=== PATIENT | female | born 1970 | race Caucasian/White ===

== ENCOUNTER 2018-10-15 07:59 | Inpatient (IN) | payer OTHER ==
[~2018-10-15] VITALS: Ht 160 cm; Wt 88.5 kg
[2018-10-15] VITALS (23 sets, daily range): BP systolic 118–151; BP diastolic 62–104; PULSE 62–80; RESP 10–24; Ht 160 cm; Wt 88.5 kg
[2018-10-15] MEDS: SOD CHLORIDE 0.9% 1,000 ML IV SCH ×2 (06:30→19:50)
[~2018-10-15 07:59] MED LIST: ATEN-51 PO; ATOR10TA65 PO; BENA10TA4 PO; CEFAZOLIN 2 GM/50 ML (PMX) 50 ML IVPB SCH; CYCL5TAB PO; ERGO500013 PO; HYDR-3601 PO; LEVO50TA71 PO
[2018-10-15] MEDS ORDERED: PHENYLephrine (100 MCG/ML) 10ML SYG ONE (11:25)
[2018-10-15] MEDS ORDERED: PROPOFOL 20 ML ONE (11:25)
[2018-10-15] MEDS ORDERED: SEVOFLURANE 15 MIN ONE (11:25)
[2018-10-15] MEDS ORDERED: ROCURONIUM 50 MG INJ ONE (11:25)
[2018-10-15] MEDS ORDERED: CEFAZOLIN 1 GM INJ ONE (11:25)
[2018-10-15] MEDS ORDERED: MIDAZOLAM 1 MG/ML 2 ML INJ ONE (11:26)
[2018-10-15] MEDS ORDERED: FENTAnyl 50 MCG/ML VIAL ONE ×2 (11:26→12:44)
--- NOTE | 2018-10-15 12:01 | PREAC ---
Date/Time of Note Date/Time of Note DATE: 10/15/18 TIME: 11:59 Anesthesia Eval and Record Evaluation Time Pre-Procedure Interview DATE: 10/15/18 TIME: 11:59 Age 48 Sex female NPO: 8 hrs Preoperative diagnosis Thyroid Nodule Planned procedure Total Thyroidectomy Past Medical History Past Medical History: Includes Cardio: HTN, Dyslipidemia Endo: Hypothyroid GI: Obesity Surgery & Anesthesia Issues No known issue Meds Anticoagulation: No Beta Haseeb within 24 hr: No Reason Beta Haseeb not given: Pt. not on B-Haseeb Reported Medications Atenolol* (Atenolol*) 25 Mg Tablet, 25 MG PO DAILY, #30 TAB 10/15/18 Ergocalciferol (Vitamin D2) (VITAMIN D2) 50,000 Unit Capsule, 93498 UNIT PO EVERY THURSDAY, CAP 10/15/18 Atorvastatin Calcium (Atorvastatin Calcium) 10 Mg Tablet, 10 MG PO QHS, #30 TAB 10/15/18 Benazepril Hcl* (Benazepril Hcl*) 10 Mg Tablet, 10 MG PO DAILY, #30 TAB 10/15/18 Levothyroxine Sodium* (Levoxyl*) 50 Mcg Tablet, 50 MCG PO BEFORE BREAKFAST, #30 TAB 10/15/18 Cyclobenzaprine Hcl* (Cyclobenzaprine Hcl*) 5 Mg Tablet, 5 MG PO BID PRN for MUSCLE SPASMS, #60 TAB 10/15/18 Current Medications Cefazolin Sodium/ Dextrose 50 ml @ 100 mls/hr PREOP IVPB ; Start 10/15/18 at 06:30; Stop 10/15/18 at 18:00 Sodium Chloride 1,000 ml @ 75 mls/hr [id number] IV ; Start 10/15/18 at 06:30; Stop 10/15/18 at 20:00 Meds reviewed: Yes Allergies Uncoded Allergies: BLOOD PRESSURE MEDICATION (Allergy, Unknown, 10/14/18) "BLOOD PRESSURE MEDICATION PER PRE-OP ORDER SHEET"-- Allergies Reviewed: Yes Labs/Studies Labs Reviewed: Reviewed by anesthesiologist Result Diagram: 10/15/18 0940 10/15/18 0940 Laboratory Tests 10/15/18 09:40 test: Negative Studies: ECG (n/a), CXR (n/a) Pre-procedure Exam Last vitals Vital Signs Date Temp Pulse Resp B/P (MAP) Pulse Ox O2 O2 Flow FiO2 Time Delivery Rate 7/26/19 97.3 80 16 138/86 99 Room Air 10:03 (103) Airway: Adequate mouth opening, Adequate thyromental dist Mallampati: Mallampati II Teeth: Normal Lung: Normal Heart: Normal ASA Physical Status ASA physical status: 3 Emergency: None Planned Anesthetic General/MAC: ETT Planned Pain Management Parenteral pain med Pre-operative Attestations Prior to commencing anesthesia and surgery, the patient was re-evaluated, there was verification of: *The patient's identity *The results of appropriate recent lab work and preoperative vital signs *The above evaluation not changing prior to induction *Anesthetic plan, risk benefits, alternative and complications discussed with patient/family; questions answered; patient/family understands, accepts and wishes to proceed. WILLIE MYLES MD Oct 15, 2018 12:00
[2018-10-15] MEDS ORDERED: BUPIVACAINE 0.25% (MPF) 30 ML INJ ONE (12:05)
[2018-10-15] MEDS ORDERED: FENTAnyl 50 MCG/ML VIAL IV PRN ×2 (12:30)
[2018-10-15] MEDS ORDERED: EPHEDrine 25 MG/5 ML SYG IV PRN (12:30)
[2018-10-15] MEDS ORDERED: hydrALAzine 20 MG INJ IV PRN (12:30)
[2018-10-15] MEDS ORDERED: ONDANSETRON 4 MG INJ IV PRN (12:30)
[2018-10-15] MEDS ORDERED: MEPERIDINE 25 MG INJ IV PRN (12:30)
[2018-10-15] MEDS ORDERED: OXYCODONE/ACETAMINOPHEN (5/325) TAB PO PRN (12:30)
[2018-10-15] MEDS ORDERED: LABETALOL HCL 20MG INJ IV PRN (12:30)
[2018-10-15] MEDS ORDERED: DIPHENHYDRAMINE 50 MG INJ IV PRN (12:30)
[2018-10-15] MEDS ORDERED: METOCLOPRAMIDE 10 MG INJ IV PRN (12:30)
[2018-10-15] MEDS ORDERED: HYDROmorphONE 1 MG/5 ML IV SYRINGE IV PRN ×2 (12:30)
[2018-10-15] MEDS ORDERED: DEXAMETHASONE 4 MG/ML 5 ML INJ ONE (12:36)
[2018-10-15] MEDS ORDERED: METOCLOPRAMIDE 10 MG INJ ONE (12:36)
[2018-10-15] MEDS ORDERED: ONDANSETRON 4 MG INJ ONE (12:36)
[2018-10-15] MEDS ORDERED: LABETALOL HCL 20MG INJ ONE (12:46)
[2018-10-15] MEDS ORDERED: SUGAMMADEX SODIUM 200 MG/2 ML VIAL IV ONE (13:17)
--- NOTE | 2018-10-15 13:27 | OPR ---
Date/Time of Note Date/Time of Note DATE: 10/15/18 TIME: 13:21 Operative Report Procedure Date: Oct 15, 2018 Preoperative Diagnosis thyroid nodule and dysphagia Postoperative Diagnosis same Operation/Procedure Performed 1. total thyroidectomy 2. localized adjacent tissue transfer with the use of skin flaps 16 sq cm defect of the neck 3. therapeutic injection of subcutaneous local anesthesia Surgeon see signature line Reading Professor Jovi Pacheco Anesthesia Type: general Estimated Blood Loss: 10 - 50 ml's Transfusion none Specimen total thyroid surgical markings single short right superior double short right inferior single long left superior double long left inferior Grafts/Implants none Complications none Pt Condition Post Procedure: stable Indications This is a 48-year-old female with symptomatic left thyroid nodule. She states that she is having dysphasia and also does not want continued monitoring and wants the nodule Jeremi due to anxiety. She underwent genetic testing which showed a low likelihood of ligament C. Even after long discussion she was adamant about getting her whole thyroid out she felt that is causing pressure on her throat. She was told that this may not be the cause however she was adamant about getting her thyroid out. Risks alternatives benefits and personal were discussed the patient. Patient expressed understanding and consents to the operation. Procedure Description Patient is taken to the OR and prepped and draped in usual sterile fashion. Surgical time was performed. IV antibiotics given. Call incision was made with a 15 blade. Dissection with cautery was carried down through the platysmal layer. Superior and inferior platysmal flaps are created midline straps were then divided. Attention was paid to the left thyroid. There appears to be a thyroid nodule in the left side. The left inferior thyroid pole was mobilized left superior thyroid pole was mobilized. The left middle thyroid vein was ligated using handheld LigaSure. The left thyroid was medialized. Careful dissection was performed and the left thyroid was taken off of the trachea. The retro-thyroidal space was also bluntly dissected out using tonsils. The right thyroid was addressed similarly by mobilizing the right inferior pole and right superior pole. The middle thyroidal vein was ligated using a LigaSure. Thyroid was medialized. The thyroid was mobilized off the trachea. In particular there was significant inflammation and adhesions of the thyroid to the trachea. Good hemostasis established. Surgical markings of single short right superior single long left superior double short right inferior double long left inferior markings were placed. Irrigation was placed into the surgical site and a Valsalva maneuver of 40 cm of water was performed. There was no evidence of any bleeding. The incision was first closed by placing interrupted 3-0 Vicryl across the strap muscles to reapproximate the strap muscles to the anatomic position. Due to tissue defect localization to his transfer with these of skin flaps was performed. Multilayer closure of the platysmal layer with interrupted 3-0 Vicryl. The skin was then closed with interrupted 3-0 Vicryl and running 4- 0 Monocryl. Therapeutic contains local anesthesia was injected at the incision site. Steri-Strips and dry dressings were applied. Cici GRIFFIN Oct 15, 2018 13:27
--- NOTE | 2018-10-15 13:29 | PAC ---
Date/Time of Note Date/Time of Note DATE: 10/15/18 TIME: 13:29 Post-Anesthesia Notes Post-Anesthesia Note Last documented vital signs Vital Signs Date Temp Pulse Resp B/P (MAP) Pulse Ox O2 O2 Flow FiO2 Time Delivery Rate 10/15/18 97.3 80 16 138/86 99 Room Air 13:33 (103) Activity: WNL Respiratory function: WNL Cardiovascular function: WNL Mental status: Baseline Pain reasonably controlled: Yes Hydration appropriate: Yes Nausea/Vomiting absent: Yes WILLIE MYLES MD Oct 15, 2018 13:29
[2018-10-15] MEDS ORDERED: CEFAZOLIN 2 GM/50 ML (PMX) 50 ML IVPB SCH (13:30)
[2018-10-15] MEDS: FENTAnyl 50 MCG/ML VIAL IV PRN ×2 (13:49→14:20)
[2018-10-15] MEDS: HYDROmorphONE 1 MG/5 ML IV SYRINGE IV PRN ×2 (13:54→14:03)
[2018-10-15] MEDS: morphine 2 MG INJ IV PRN ×3 (15:22→22:24)
[2018-10-15] MEDS: LACTATED RINGER'S 1,000 ML IV SCH ×2 (15:23→23:19)
[2018-10-15] MEDS: CEFAZOLIN 2 GM/50 ML (PMX) 50 ML IVPB SCH (21:16)
[2018-10-16] VITALS: BP 120/58; PULSE 75; RESP 18
[2018-10-16] MEDS: morphine 2 MG INJ IV PRN ×4 (00:24→21:24)
[2018-10-16] MEDS: LACTATED RINGER'S 1,000 ML IV SCH ×3 (00:26→21:26)
[2018-10-16] MEDS: HYDROCODONE/APAP (5/325) TAB PO PRN ×4 (01:43→22:28)
[2018-10-16] MEDS: CEFAZOLIN 2 GM/50 ML (PMX) 50 ML IVPB SCH ×2 (04:26→11:26)
[2018-10-16 07:30] VITALS: BP 138/75; PULSE 76; RESP 18
--- NOTE | 2018-10-16 12:15 | HP ---
Date/Time of Note Date/Time of Note DATE: 10/16/18 TIME: 12:14 Assessment/Plan VTE Prophylaxis Risk score (from [facility])>0 risk: 8 SCD applied (from [facility]): Yes Pharmacological prophylaxis: LMWH Lines/Catheters IV Catheter Type (from [facility]): Peripheral IV Urinary Cath still in place: No Assessment/Plan Hospital Course 1) thyroid nodule - s/p total thyroidectomy - postoperative care 2) hypertension - monitor - continue meds Result Diagram: 10/16/18 0434 10/16/18 0434 Results 24hrs Laboratory Tests Test 10/15/18 13:41 10/16/18 04:34 White Blood Count 8.2 # 12.1 #H Red Blood Count 4.89 4.50 Hemoglobin 15.3 13.9 Hematocrit 47.9 H 43.3 Mean Corpuscular Volume 98.0 96.2 Mean Corpuscular Hemoglobin 31.3 30.9 Mean Corpuscular Hemoglobin Concent 31.9 L 32.1 Red Cell Distribution Width 13.9 13.9 Platelet Count 224 265 Mean Platelet Volume 9.8 9.9 Immature Granulocytes % 0.600 H 0.500 H Neutrophils % 50.1 85.7 H Lymphocytes % 39.2 10.0 L Monocytes % 7.0 3.6 Eosinophils % 2.2 0.0 Basophils % 0.9 0.2 Nucleated Red Blood Cells % 0.0 0.0 Immature Granulocytes # 0.050 H 0.060 H Neutrophils # 4.1 10.4 H Lymphocytes # 3.2 H 1.2 Monocytes # 0.6 0.4 Eosinophils # 0.2 0.0 Basophils # 0.1 0.0 Nucleated Red Blood Cells # 0.0 0.0 Sodium Level 142 141 Potassium Level 3.9 4.1 Chloride Level 109 107 Carbon Dioxide Level 23 25 Anion Gap 10 9 Blood Urea Nitrogen 13 12 Creatinine 0.66 0.64 Est Glomerular Filtrat Rate mL/min > 60 > 60 Glucose Level 102 156 Calcium Level 8.6 8.2 L Total Bilirubin 0.4 0.2 Direct Bilirubin 0.00 0.00 Indirect Bilirubin 0.4 0.2 Aspartate Amino Transf (AST/SGOT) 24 25 Alanine Aminotransferase (ALT/SGPT) 25 19 Alkaline Phosphatase 71 53 Total Protein 7.8 7.3 Albumin 3.9 3.7 Globulin 3.90 H 3.60 H Albumin/Globulin Ratio 1.00 1.02 HPI/ROS Admit Date/Time Admit Date/Time Oct 15, 2018 at 07:59 Hx of Present Illness Patient with hypertension and history of thyroid nodule is admitted for schedu led total thyroidectomy. Patient tolerated the procedure and is receiving postoperative care. PMH/Family/Social Past Medical History Medical History: hypertension Medications Current Medications Morphine Sulfate (morphine) 2 mg Q2H PRN IV PAIN LEVEL 6-10 Last administered on 10/16/18at 04:26; Admin Dose 2 MG; Start 10/15/18 at 13:30 Acetaminophen/ Hydrocodone Bitart ([place] (5/325)) 1 tab Q6H PRN PO PAIN LEVEL 6-10 Last administered on 10/16/18at 08:41; Admin Dose 1 TAB; Start 10/15/18 at 13:30 Lactated Ringer's 1,000 ml @ 100 mls/hr Q10H IV Last administered on 10/16/18at 11:34; Admin Dose 100 MLS/HR; Start 10/15/18 at 13:19 Cefazolin Sodium/ Dextrose 50 ml @ 100 mls/hr Q8H IVPB Last administered on 10/16/18at 11:26; Admin Dose 100 MLS/HR; Start 10/15/18 at 20:00; Stop 10/16/18 at 12:29 Uncoded Allergies: BLOOD PRESSURE MEDICATION (Allergy, Unknown, 10/14/18) "BLOOD PRESSURE MEDICATION PER PRE-OP ORDER SHEET"-- Social History Smoking Status: Current every day smoker Exam/Review of Systems Vital Signs Vitals Vital Signs Date Temp Pulse Resp B/P (MAP) Pulse Ox O2 O2 Flow FiO2 Time Delivery Rate 10/16/18 97.7 76 18 138/75 95 Room Air 07:30 (96) 10/15/18 2.0 16:45 Intake and Output 10/15/18 10/15/18 10/16/18 1515:00 23:00 07:00 IntakeIntake Total 1000 ml 280 ml 450 ml OutputOutput Total 10 ml BalanceBalance 990 ml 280 ml 450 ml Exam Constitutional: well developed Head: normocephalic, atraumatic Neck: supple Respiratory: clear to auscultation Cardiovascular: regular rate and rhythm Gastrointestinal: soft, non-tender Extremities: normal pulses ALON KOHURY Oct 16, 2018 12:15
[2018-10-16 14:00] VITALS: BP 140/86; PULSE 76; RESP 18
[2018-10-16 15:32] VITALS: BP 122/64; PULSE 73; RESP 15
[2018-10-16] MEDS: GUAIFENESIN/DM 5ML CUP PO PRN ×2 (15:52→21:18)
[2018-10-16] MEDS: ATENOLOL 25 MG TAB PO SCH (15:53)
--- NOTE | 2018-10-16 15:53 | PN ---
DATE: 10/16/2018 Postop day #1 status post total thyroidectomy. SUBJECTIVE: Apparently, patient has had some decreased oxygen saturation last night, they had to giv e her some oxygen. OBJECTIVE: VITAL SIGNS: Today temperature 98.2, heart rate 75, respirations 18, blood pressure is 138/75, pulse oximetry is 94%, room air. GENERAL: Patient is alert, awake, oriented. SKIN: Clinical exam the skin of the face is plethoric (flushed). The patient states that she never had such a problem at home and stated that she has noticed it since a couple of hours ago. P florecita also has slight difficulty swallowing and she feels that there is phlegm in her throat and she tries to cough up and actually she coughed up a lot of phlegm, she said, but she noticed did not not ice the color and she feels that she still has some pain in her throat. She has had some food but no t full service of the lunch. Dressing was changed. Incision is clean. There is no erythema, no ecc hymosis, no bruising. HEART: Regular. LUNGS: Harsh breathing sounds all over (patient states that once in a while she smokes cigarettes). ABDOMEN: Soft. EXTREMITIES: Lower extremities - no pitting edema. Patient believes that there is some swelling of h er hand LABORATORY DATA: Today the WBC has increased to 12,100 with 85% segmented, hemoglobin is 13.9, hemat ocrit 43.3, platelets 265. Chemistry: Calcium yesterday on admission was 9 then today morning at 4: 00 is 8.2, some decrease in the numbers. PLAN: Considering combination of problems including erythema and plethoric changes of the skin of th e face and cough the patient has productive of phlegm and increased WBC and shift to the left and dec reased calcium, I am intending to keep the patient at least 1 more night and repeat a calcium tomorro w morning and today afternoon and get a stat chest x-ray and if that is okay by tomorrow we can disch arge the patient. Dictated By: HAILEY CUELLAR MD PS/NTS Conf#: [id number] DID#: [id number] CC: JESSIE JUNIOR MD;*EndCC*
[2018-10-16 20:29] VITALS: BP 115/70; PULSE 72; RESP 19
[2018-10-16] MEDS: CALCIUM/VITAMIN D (500/200) TAB PO SCH (21:18)
[2018-10-16] MEDS: BENAZEPRIL 10 MG TAB PO SCH (21:18)
[2018-10-17] MEDS: morphine 2 MG INJ IV PRN ×2 (01:25→05:56)
[2018-10-17 02:30] VITALS: BP 101/66; PULSE 69; RESP 18
[2018-10-17] MEDS: HYDROCODONE/APAP (5/325) TAB PO PRN ×3 (04:23→23:51)
[2018-10-17 07:47] VITALS: BP 103/63; PULSE 68; RESP 18
[2018-10-17] MEDS ORDERED: DIPHENHYDRAMINE 25 MG CAP PO PRN (08:00)
[2018-10-17] MEDS ORDERED: DIPHENHYDRAMINE 50 MG INJ IV PRN (08:00)
[2018-10-17] MEDS: ATENOLOL 25 MG TAB PO SCH (08:10)
[2018-10-17] MEDS: CALCIUM/VITAMIN D (500/200) TAB PO SCH ×3 (08:13→20:08)
--- NOTE | 2018-10-17 12:12 | DS ---
Date/Time of Note Date/Time of Note DATE: 10/17/18 TIME: 12:11 Discharge Summary Admission/Discharge Info Admit Date/Time Oct 15, 2018 at 07:59 Discharge Date/Time 10/17/18 Discharge Diagnosis 1) thyroid nodule - s/p total thyroidectomy - postoperative care 2) hypertension - monitor - continue meds Patient Condition: Fair Consults surgery Procedures total thyroidectomy Hx of Present Illness Patient with hypertension and history of thyroid nodule is admitted for scheduled total thyroidectomy. Patient tolerated the procedure and is receiving postoperative care. Hospital Course Patient with hypertension and history of thyroid nodule is admitted for sche duled total thyroidectomy. Patient tolerated the procedure and is receiving postoperative care. Patient was discharged when she was felt to be stable 1) thyroid nodule - s/p total thyroidectomy - postoperative care 2) hypertension - monitor - continue meds Home Meds Active Scripts Hydrocodone Bit-Acetaminophen (Hydrocodone Bit-APAP) 5-325MG Tablet, 1 TAB PO Q 6H PRN for PAIN LEVEL 6-10 for 10 Days, #30 TAB Prov:ALON KHOURY 10/17/18 Reported Medications Atenolol* (Atenolol*) 25 Mg Tablet, 25 MG PO DAILY, #30 TAB 10/15/18 Ergocalciferol (Vitamin D2) (VITAMIN D2) 50,000 Unit Capsule, 85165 UNIT PO EVERY THURSDAY, CAP 10/15/18 Atorvastatin Calcium (Atorvastatin Calcium) 10 Mg Tablet, 10 MG PO QHS, #30 TAB 10/15/18 Benazepril Hcl* (Benazepril Hcl*) 10 Mg Tablet, 10 MG PO DAILY, #30 TAB 10/15/18 Levothyroxine Sodium* (Levoxyl*) 50 Mcg Tablet, 50 MCG PO BEFORE BREAKFAST, #30 TAB 10/15/18 Cyclobenzaprine Hcl* (Cyclobenzaprine Hcl*) 5 Mg Tablet, 5 MG PO BID PRN for MUSCLE SPASMS, #60 TAB 10/15/18 Primary Care Provider Not On Staff Doctor Pending Labs Laboratory Tests Test 10/16/18 17:17 10/17/18 04:34 Calcium Level 7.8 mg/dl (8.4-10.2) 7.6 mg/dl (8.4-10.2) White Blood Count 12.1 10^3/ul (4.8-10.8) Red Blood Count 4.04 10^6/ul (4.20-5.40) Hemoglobin 12.5 g/dl (12.0-16.0) Hematocrit 39.4 % (37.0-47.0) Mean Corpuscular Volume 97.5 fl (82.0-101.0) Mean Corpuscular Hemoglobin 30.9 pg (29.0-33.0) Mean Corpuscular 31.7 g/dl (32.0-37.0) Hemoglobin Concent Red Cell Distribution Width 14.4 % (11.5-14.5) Platelet Count 229 10^3/UL (140-415) Mean Platelet Volume 10.2 fl (7.4-10.4) Immature Granulocytes % 0.400 % (0.001-0.429) Neutrophils % 63.3 % (39.0-77.0) Lymphocytes % 27.7 % (15.0-51.0) Monocytes % 8.0 % (0.0-11.0) Eosinophils % 0.3 % (0.0-7.0) Basophils % 0.3 % (0.0-2.0) Nucleated Red Blood Cells % 0.0 /100WBC (0.0-0.0) Immature Granulocytes # 0.050 10^3/ul (0.0-0.031) Neutrophils # 7.7 10^3/ul (1.6-7.5) Lymphocytes # 3.4 10^3/ul (0.8-2.9) Monocytes # 1.0 10^3/ul (0.3-0.9) Eosinophils # 0.0 10^3/ul (0.0-0.5) Basophils # 0.0 10^3/ul (0.0-0.1) Nucleated Red Blood Cells # 0.0 10^3/ul (0.0-0.0) ALON KHOURY Oct 17, 2018 12:12
[2018-10-17] MEDS: LACTATED RINGER'S 1,000 ML IV SCH (14:57)
[2018-10-17] MEDS ORDERED: MAGNESIUM HYDROXIDE 30ML CUP PO ONE (15:00)
[2018-10-17] MEDS ORDERED: PANTOPRAZOLE 40 MG INJ IV ONE (15:00)
[2018-10-17] MEDS ORDERED: MINERAL OIL 30ML CUP PO ONE (15:00)
[2018-10-17 15:14] VITALS: BP 121/59; PULSE 66; RESP 18
[2018-10-17] MEDS ORDERED: PANTOPRAZOLE 40 MG INJ IV SCH (18:00)
[2018-10-17 20:05] VITALS: BP 111/73; PULSE 66; RESP 18
[2018-10-17] MEDS: MINERAL OIL 30ML CUP PO SCH (20:08)
[2018-10-17] MEDS: BENAZEPRIL 10 MG TAB PO SCH (20:11)
[2018-10-17] MEDS: PANTOPRAZOLE 40 MG INJ IV SCH (20:12)
--- NOTE | 2018-10-17 21:29 | PN ---
DATE: 10/17/2018 Postop day #2 status post total thyroidectomy for left thyroid nodule. SUBJECTIVE: The patient yesterday was complaining of some retrosternal pressure feeling with cough p roductive of sputum, and gave her Robitussin. Today, the patient states that the cough is better, an d she is seen having some phlegm, but she feels pressure in the area of the anterior chest. OBJECTIVE: GENERAL: Alert, awake, oriented x3. VITAL SIGNS: Temperature 97.9, heart rate 69, respirations 18, blood pressure 103/63, saturation 93% room air. HEART: Regular. LUNGS: Probably decreased breathing sounds at bases. NECK: Incision site is clean. No oozing, no ecchymosis, no swelling. ABDOMEN: Soft. (The patient has not had a bowel movement for 3 days.) 1. The patient has been getting benazepril 10 mg, Atenolol, and thyroid hormone at home. [facility] by myself in regard to the past history of possible any heart disease , she admits that she once was admitted for possible heart problem, and they told her that the heart was slightly enlarged. She gives history of heart disease in her family on mother's side. Her mothe r has heart disease. Two of her younger sisters have from heart disease. In regard to the ce ent herself, she gives history of easy fatigability upon climbing stairs, and also she said that she cannot walk long distance, and she has chest discomfort. Considering all these factors, I am not khoi e if she does not have any coronary heart disease. Therefore, I am going to get a consultation from Dr. Fallon, the plant electrical engineer. Meanwhile, we are going to give the patient nasal oxygen 2 liters con sidering the saturation is 93% on room air. 2. The patient already has SCDs. 3. We are going to get a stat 12-lead EKG, and today we are going to get 2D echo. 4. We are going to order CPK and troponin panel stat and every 8 hours x3. We are going to get chol esterol lipid panel tomorrow. Also, we are going to repeat EKG, 12-lead tomorrow morning. I put in a consultation in the computer for Dr. Fallon, and I called and talked to him, and he is going to se e the patient later on tonight. We will keep the patient at bedrest, and we will put the patient on SCDs that already have been on. I told the patient and her that this is what we are going to do, and they agreed. It should be mentioned that last night we got a chest x-ray and the report was as follows: 1. No radiologic evidence of acute cardiopulmonary process. 2. Mild elevation of the right hemidiaphragm. The patient has not had a bowel movement for 3 days. We are going to give the patient milk of [place] 30 mL plus 30 mL of mineral oil and also continue mineral oil 30 mL q.8 hours. Further decision f or discharge will be made tomorrow after a complete workup and evaluation by the plant electrical engineer. Also, the calcium level which had dropped to 7.8 yesterday at 5:00 p.m., today morning at 5:00 a.m., it wa s still low down to 7.6, and the albumin of the patient was 3.7. Therefore, we started the patient o n Os-Renato 500 mg/200 units vitamin D. We are going to give her 2 tablets every 8 hours. Dictated By: HAILEY CUELLAR MD PS/NTS Conf#: [id number] DID#: [id number] CC: JESSIE JUNIOR MD;*End*
[2018-10-18 02:28] VITALS: BP 116/62; PULSE 65; RESP 18
[2018-10-18] MEDS: PANTOPRAZOLE 40 MG INJ IV SCH (05:15)
[2018-10-18 07:21] VITALS: BP 112/65; PULSE 65; RESP 19
[2018-10-18] MEDS: CALCIUM/VITAMIN D (500/200) TAB PO SCH ×2 (08:42→13:58)
[2018-10-18] MEDS: MINERAL OIL 30ML CUP PO SCH (08:43)
[2018-10-18] MEDS: ATENOLOL 25 MG TAB PO SCH (08:43)
--- NOTE | 2018-10-18 09:06 | RADRPT ---
Vent Rate: 64 bpm RR Interval: 944 msec ID Interval: 181 msec QRS Duration: 94 msec QT Interval: 396 msec QTC Interval: 408 msec P-R-T [place]: 11 - 11 - 23 degrees Sinus rhythm...normal P axis, V-rate 50- 99 Electronically Signed By: Beck Catalan
--- NOTE | 2018-10-18 10:24 | PN ---
Date/Time of Note Date/Time of Note DATE: 10/18/18 TIME: 10:23 Assessment/Plan VTE Prophylaxis Risk score (from Ns)>0 risk: 3 SCD applied (from Ns): Yes Pharmacological prophylaxis: other Lines/Catheters IV Catheter Type (from Nrs): Peripheral IV Urinary Cath still in place: No Assessment/Plan Assessment/Plan s/p total thyroidectomy cardiac enzymes negative dc home today take calcium supplements OTC and f/u in clinic Result Diagram: 10/18/18 0707 10/18/18 0707 Results 24hrs Laboratory Tests Test 10/17/18 15:18 10/17/18 22:41 10/18/18 07:03 10/18/18 07:07 Creatine Kinase 109 77 59 Creatine Kinase 0.3 0.5 0.4 Index Creatinine Kinase 0.37 0.36 < 0.22 MB (Mass) Troponin I < 0.012 < 0.012 < 0.012 Free Thyroxine 2.19 Index Thyroxine (T4) 7.1 Triiodothyronine 30.8 (T3) Uptake Lab Scanned Report REFERENCE LAB White Blood Count 9.3 # Red Blood Count 4.16 L Hemoglobin 13.0 Hematocrit 40.3 Mean Corpuscular 96.9 Volume Mean Corpuscular 31.3 Hemoglobin Mean Corpuscular 32.3 Hemoglobin Concent Red Cell 14.4 Distribution Width Platelet Count 218 Mean Platelet 10.0 Volume Immature 0.500 H Granulocytes % Neutrophils % 50.5 Lymphocytes % 38.9 Monocytes % 8.3 Eosinophils % 1.2 Basophils % 0.6 Nucleated Red 0.0 Blood Cells % Immature 0.050 H Granulocytes # Neutrophils # 4.7 Lymphocytes # 3.6 H Monocytes # 0.8 Eosinophils # 0.1 Basophils # 0.1 Nucleated Red 0.0 Blood Cells # Sodium Level 140 Potassium Level 3.8 Chloride Level 103 Carbon Dioxide 30 Level Anion Gap 7 Blood Urea 17 Nitrogen Creatinine 0.60 Est Glomerular > 60 Filtrat Rate mL/min Glucose Level 85 Calcium Level 7.9 L Triglycerides 164 H Level Cholesterol Level 177 LDL Cholesterol, 101 Calculated HDL Cholesterol 43 Cholesterol/HDL 4.1 Ratio Subjective 24 Hr Interval Summary Free Text/Dictation doing well cardiac enzymes normal no issues voice normal low calcium Exam/Review of Systems Exam Vitals Vital Signs Date Temp Pulse Resp B/P (MAP) Pulse Ox O2 O2 Flow FiO2 Time Delivery Rate 10/18/18 98.2 65 19 112/65 98 07:21 (81) 10/16/18 Room Air 14:00 10/15/18 2.0 16:45 Intake and Output 10/17/18 10/17/18 10/18/18 1515:00 23:00 07:00 IntakeIntake Total 900 ml 80 ml 440 ml BalanceBalance 900 ml 80 ml 440 ml Exam c/d/i Results Results 24hrs Laboratory Tests Test 10/17/18 15:18 10/17/18 22:41 10/18/18 07:03 10/18/18 07:07 Creatine Kinase 109 77 59 Creatine Kinase 0.3 0.5 0.4 Index Creatinine Kinase 0.37 0.36 < 0.22 MB (Mass) Troponin I < 0.012 < 0.012 < 0.012 Free Thyroxine 2.19 Index Thyroxine (T4) 7.1 Triiodothyronine 30.8 (T3) Uptake Lab Scanned Report REFERENCE LAB White Blood Count 9.3 # Red Blood Count 4.16 L Hemoglobin 13.0 Hematocrit 40.3 Mean Corpuscular 96.9 Volume Mean Corpuscular 31.3 Hemoglobin Mean Corpuscular 32.3 Hemoglobin Concent Red Cell 14.4 Distribution Width Platelet Count 218 Mean Platelet 10.0 Volume Immature 0.500 H Granulocytes % Neutrophils % 50.5 Lymphocytes % 38.9 Monocytes % 8.3 Eosinophils % 1.2 Basophils % 0.6 Nucleated Red 0.0 Blood Cells % Immature 0.050 H Granulocytes # Neutrophils # 4.7 Lymphocytes # 3.6 H Monocytes # 0.8 Eosinophils # 0.1 Basophils # 0.1 Nucleated Red 0.0 Blood Cells # Sodium Level 140 Potassium Level 3.8 Chloride Level 103 Carbon Dioxide 30 Level Anion Gap 7 Blood Urea 17 Nitrogen Creatinine 0.60 Est Glomerular > 60 Filtrat Rate mL/min Glucose Level 85 Calcium Level 7.9 L Triglycerides 164 H Level Cholesterol Level 177 LDL Cholesterol, 101 Calculated HDL Cholesterol 43 Cholesterol/HDL 4.1 Ratio Medications Medication Current Medications Morphine Sulfate (morphine) 2 mg Q2H PRN IV PAIN LEVEL 6-10 Last administered on 10/17/18at 05:56; Admin Dose 2 MG; Start 10/15/18 at 13:30 Acetaminophen/ Hydrocodone Bitart ([place] (5/325)) 1 tab Q6H PRN PO PAIN LEVEL 6-10 Last administered on 10/17/18 23:51; Admin Dose 1 TAB; Start 10/15/18 at 13:30 Lactated Ringer's 1,000 ml @ 40 mls/hr Q24H IV Last administered on 10/17/18 14:57; Admin Dose 40 MLS/HR; Start 10/15/18 at 13:19 Guaifenesin/ Dextromethorphan (Robitussin Dm Liquid Cup) 5 ml Q4H PRN PO COUGH Last administered on 10/16/18 21:18; Admin Dose 5 ML; Start 10/16/18 at 14:00 Atenolol (Tenormin) 25 mg DAILY PO Last administered on 10/18/18 08:43; Admin Dose 25 MG; Start 10/16/18 at 14:00 Benazepril HCl (Lotensin) 10 mg HS PO Last administered on 10/17/18 20:11; Admin Dose 10 MG; Start 10/16/18 at 21:00 Diphenhydramine HCl (Benadryl) 25 mg Q6H PRN IV [place]CH[place]; Start 10/17/18 at 08:00 Diphenhydramine HCl (Benadryl) 25 mg Q6H PRN PO ITCHING Last administered on 10/17/18 08:12; Admin Dose 25 MG; Start 10/17/18 at 08:00 Mineral Oil (Mineral Oil) 30 ml TID PO Last administered on 10/18/18 08:43; Admin Dose 30 ML; Start 10/17/18 at 21:00 Calcium/Vitamin D ([place]/ Vit-D (500/200)) 2 tab TID PO Last administered on 10/18/18 08:42; Admin Dose 2 TAB; Start 10/17/18 at 21:00 Pantoprazole (Protonix Iv) 40 mg BID@06,18 IV Last administered on 10/18/18 05:15; Admin Dose 40 MG; Start 10/17/18 at 21:00 Cici GRIFFIN Oct 18, 2018 10:24
--- NOTE | 2018-10-18 13:26 | RADRPT ---
Vent Rate: 62 bpm RR Interval: 976 msec [place] Interval: 182 msec QRS Duration: 92 msec QT Interval: 421 msec QTC Interval: 426 msec P-R-T [place]: -15 - 23 - 21 degrees Sinus rhythm...normal P axis, V-rate 50- 99 Electronically Signed By: Oliver Cooper
--- NOTE | 2018-10-18 13:38 | RADRPT ---
Echocardiogram Report Patient Name: CLIFF PERSONPatient ID: [id number] : 1970 (48y )Study Date: 10/17/2018 3:13:05 PM Gender: FAccession #: [id number] Tech: [facility] Location: [facility] Ref.Physician: HAILEY CUELLAR Height(Cm): 160 BSA: 1.98Weight(Kg): 88.5 Quality: AdequateOrder Physician: HAILEY CUELLAR Account #: Procedures: Echocardiographic Report: Transthoracic echocardiogram with 2D, M-Mode, and doppler examination, poor subcostal images. Indications: Chest Pain. Measurements: 2D/M Mode Doppler Measurement Value Normal Range Measurement Value Normal Range LVIDd 2D 4.4 [ 3.8 - 5.2 ] cm AV Peak Torrey 1.4 [ 100.0 - 170.0 ] cm/se c LVIDs 2D 2.3 [ 2.2 - 3.5 ] cm AV Peak PG 8.0 [ 2.0 - 9.0 ] mmHg LVPWd 2D 0.9 [ 0.6 - 0.9 ] cm LVOT Peak Torrey 0.9 [ 70.0 - 110.0 ] cm/sec IVSd 2D 1.0 [ 0.6 - 0.9 ] cm LVOT Peak PG 3.0 [ 2.0 - 6.0 ] mmHg AoR Diam 2D 2.8 [ 2.3 - 3.1 ] cm MV E Peak Torrey 0.8 [ 60.0 - 130.0 ] cm/sec EDV 2D 89.1 [ 46.0 - 106.0 ] ml MV A Peak Torrey 0.6 [ 100.0 - 120.0 ] cm/se c ESV 2D 18.7 [ 14.0 - 42.0 ] ml MV E/A 1.2 [ 0.8 - 1.5 ] ratio EF 2D 79.0 [ 54.0 - 74.0 ] percent MV PHT 50.0 [ 20.0 - 100.0 ] msec LA Dimen 2D 3.2 [ 2.7 - 3.8 ] cm MV Decel Time 169 [ 104 - 258 ] msec MV Decel Bowie 5 Lat E` Torrey 0.1 [ 10.0 - 15.0 ] cm/sec Lateral E/E` 6.9 [ 1.0 - 2.0 ] ratio Med E` Torrey 0.1 cm/sec MV E/A 1.2 [ 0.8 - 1.5 ] ratio MVA PHT 4.4 [ 2.0 - 4.0 ] cm2 Findings: Left Ventricle: Normal left ventricular systolic function. Normal left ventricular cavity size. Mild hypertrophy of the basal septum. Ejection fraction is visually estimated at 60 %. Tissue Doppler/Mitral Doppler indices are within normal limits. E/E'= 9. Right Ventricle: Normal right ventricular size. Normal right ventricular systolic function. Left Atrium: The left atrium is normal in size. Right Atrium: The right atrium is normal in size. Atrial Septum: Not well visualized. Mitral Valve: Normal appearance of the mitral valve. Mild mitral valve regurgitation. Aortic Valve: Normal appearance of the aortic valve. No significant aortic stenosis or insufficiency. Tricuspid Valve: Normal appearance and function of the tricuspid valve with trace physiologic regurgitation. Pulmonic Valve: Normal pulmonic valve appearance. Pericardium: Normal pericardium with no significant pericardial effusion. Aorta: Normal aortic root. IVC: Normal size and normal respiratory collapse consistent with normal right atrial pressure. Pulmonary Artery: Normal pulmonary artery size. Conclusions: Normal left ventricular systolic function. Normal left ventricular cavity size. Mild hypertrophy of the basal septum. Ejection fraction is visually estimated at 60 %. Tissue Doppler/Mitral Doppler indices are within normal limits. E/E'= 9. Normal appearance of the mitral valve. Mild mitral valve regurgitation. n. Normal appearance and function of the tricuspid valve with trace physiologic regurgitation. Electronically Signed By: Holden Fallon 2018-10-18 13:37:06 PDT
--- NOTE | 2018-10-18 13:57 | DS ---
Date/Time of Note Date/Time of Note DATE: 10/18/18 TIME: 13:56 Discharge Summary Admission/Discharge Info Admit Date/Time Oct 15, 2018 at 07:59 Discharge Date/Time 10/18/18 Discharge Diagnosis 1) thyroid nodule - s/p total thyroidectomy - postoperative care 2) hypertension - monitor - continue meds Hx of Present Illness Patient with hypertension and history of thyroid nodule is admitted for scheduled total thyroidectomy. Patient tolerated the procedure and is receiving postoperative care. Hospital Course Patient with hypertension and history of thyroid nodule is admitted for scheduled total thyroidectomy. Patient tolerated the procedure and is receiving postoperative care. Patient was discharged when she was felt to be stable. Will give her low dose thyroid replacement in case she becomes symptomatically hypothyroid prior to her office visit with her regular physician. 1) thyroid nodule - s/p total thyroidectomy - postoperative care 2) hypertension - monitor - continue meds Home Meds Active Scripts Hydrocodone Bit-Acetaminophen (Hydrocodone Bit-APAP) 5-325MG Tablet, 1 TAB PO Q6H PRN for PAIN LEVEL 6-10 for 10 Days, #30 TAB Prov:ALON KHOURY 10/17/18 Reported Medications Atenolol* (Atenolol*) 25 Mg Tablet, 25 MG PO DAILY, #30 TAB 10/15/18 Ergocalciferol (Vitamin D2) (VITAMIN D2) 50,000 Unit Capsule, 08450 UNIT PO EVERY THURSDAY, CAP 10/15/18 Atorvastatin Calcium (Atorvastatin Calcium) 10 Mg Tablet, 10 MG PO QHS, #30 TAB 10/15/18 Benazepril Hcl* (Benazepril Hcl*) 10 Mg Tablet, 10 MG PO DAILY, #30 TAB 10/15/18 Levothyroxine Sodium* (Levoxyl*) 50 Mcg Tablet, 50 MCG PO BEFORE BREAKFAST, #30 TAB 10/15/18 Cyclobenzaprine Hcl* (Cyclobenzaprine Hcl*) 5 Mg Tablet, 5 MG PO BID PRN for MUSCLE SPASMS, #60 TAB 10/15/18 Primary Care Provider Not On Staff Doctor Pending Labs Laboratory Tests Test 10/17/18 15:18 10/17/18 22:41 10/18/18 07:03 10/18/18 07:07 Creatine 109 77 59 Kinase IU/L (23-200) IU/L (23-200) IU/L (23-200) Creatine Kinase 0.3 0.5 0.4 Index Creatinine 0.37 0.36 < 0.22 Kinase MB ng/ml (0.0-2.4) ng/ml (0.0-2.4 ng/ml (0.0-2.4 (Mass) ) ) Troponin I < 0.012 < 0.012 < 0.012 ng/ml (0.000-0. ng/ml (0.000-0 ng/ml (0.000-0 120) .120) .120) Free Thyroxine 2.19 Index ug/ml (0.65-3.8 9) Thyroxine (T4) 7.1 ug/dl (5.5-11.0 ) Triiodothyronin 30.8 e (T3) Uptake % (23.5-40.5) Lab Scanned REFERENCE Report LAB [id number] White Blood 9.3 Count 10^3/ul (4.8-1 0.8) Red Blood 4.16 Count 10^6/ul (4.20- 5.40) Hemoglobin 13.0 g/dl (12.0-16. 0) Hematocrit 40.3 % (37.0-47.0) Mean 96.9 Corpuscular fl (82.0-101.0 Volume ) Mean 31.3 Corpuscular pg (29.0-33.0) Hemoglobin Mean 32.3 Corpuscular g/dl (32.0-37. Hemoglobin Conc 0) ent Red Cell 14.4 Distribution % (11.5-14.5) Width Platelet Count 218 10^3/UL (140-4 15) Mean Platelet 10.0 Volume fl (7.4-10.4) Immature 0.500 Granulocytes % % (0.001-0.429 ) Neutrophils % 50.5 % (39.0-77.0) Lymphocytes % 38.9 % (15.0-51.0) Monocytes % 8.3 % (0.0-11.0) Eosinophils % 1.2 % (0.0-7.0) Basophils % 0.6 % (0.0-2.0) Nucleated Red 0.0 Blood Cells % /100WBC (0.0-0 .0) Immature 0.050 Granulocytes # 10^3/ul (0.0-0 .031) Neutrophils # 4.7 10^3/ul (1.6-7 .5) Lymphocytes # 3.6 10^3/ul (0.8-2 .9) Monocytes # 0.8 10^3/ul (0.3-0 .9) Eosinophils # 0.1 10^3/ul (0.0-0 .5) Basophils # 0.1 10^3/ul (0.0-0 .1) Nucleated Red 0.0 Blood Cells # 10^3/ul (0.0-0 .0) Sodium Level 140 mmol/L (135-14 4) Potassium 3.8 Level mmol/L (3.5-5. 1) Chloride Level 103 mmol/L (97-110 ) Carbon Dioxide 30 Level mmol/L (21-31) Anion Gap 7 (5-13) Blood Urea 17 Nitrogen mg/dl (7-20) Creatinine 0.60 mg/dl (0.44-1. 00) Est Glomerular > 60 Filtrat mL/min (>60) Rate mL/min Glucose Level 85 mg/dl (70-220) Calcium Level 7.9 mg/dl (8.4-10. 2) Triglycerides 164 Level mg/dl (0-149) Cholesterol 177 Level mg/dl (100-200 ) LDL 101 mg/dl Cholesterol, Calculated HDL 43 Cholesterol mg/dl (37-92) Cholesterol/HDL 4.1 RATIO Ratio ALON KHOURY Oct 18, 2018 13:57
--- NOTE | 2018-10-18 16:07 | CONS ---
DATE OF ADMISSION: 10/15/2018 DATE OF CONSULTATION: 10/18/2018 REASON FOR CONSULTATION: Chest pain, assess for acute coronary syndrome. REQUESTING PHYSICIAN: Dr. Cuellar from the Surgery Department and Dr. Yates. HISTORY OF PRESENT ILLNESS: is a 48-year-old female with a history of hypertension, who was found to have a left thyroid nodule and subsequently was brought in for and underwent a tota l thyroidectomy on October 15, 2018. Postoperatively, the patient had some complaints of a substernal chest pain described as a chest pressure occurring at rest without radiation. Given these findings, cardiology consult was requested. PAST MEDICAL HISTORY: As above in HPI. MEDICATIONS CURRENTLY IN HOSPITAL: 1. Mineral oil. 2. Calcium. 3. Vitamin D. 4. Protonix 40 mg IV b.i.d. 5. Diphenhydramine p.r.n. 6. Benazepril 10 mg at bedtime. 7. Atenolol 25 mg daily. 8. Morphine p.r.n. 9. [place] p.r.n. 10. IV fluid hydration at 40 mL an hour. ALLERGIES: NO KNOWN DRUG ALLERGIES. SOCIAL HISTORY: No current tobacco, ETOH or illicit drug use. FAMILY HISTORY: No history of sudden cardiac or early CAD. REVIEW OF SYSTEMS: As above in HPI. CONSTITUTIONAL: No fevers, chills. PULMONARY: No current shortness of breath. CARDIOVASCULAR: Intermittent chest pain. GASTROINTESTINAL: No vomiting. GENITOURINARY: No hematuria. MUSCULOSKELETAL: Degenerative joint disease. PSYCHIATRIC: The patient has depression. NEUROLOGIC: No documented CVA. PHYSICAL EXAMINATION VITAL SIGNS: Temperature of 98.2, blood pressure 112/65, pulse 65, O2 sat 98%. GENERAL: The patient is alert, awake, no acute distress. NECK: JVP approximately 8 to 9 cm of water. Covered by dressing, status post thyroidectomy. CHEST: Fair air movement throughout. HEART: Regular rate and rhythm. Normal S1, S2, I/ systolic murmur. Nondisplaced PMI. ABDOMEN: Positive bowel sounds, soft. EXTREMITIES: No edema. LABORATORIES: Most recently from today, troponins negative times total of 3. LDL of 101, HDL 43. F ree T4 2.1. Sodium 140, potassium 3.8, creatinine 0.6. White blood count 9.3, hemoglobin 13, platel et count 218. IMAGING STUDIES: Chest x-ray from the revealing no radiographic acute cardiopulmonary process a nd mild elevation of right hemidiaphragm. ECG: From this morning reveals sinus rhythm, rate of 60, normal axis, normal intervals, isolated bip hasic T-wave in lead III. No significant change from the patient's previous EKG, the day before on t he . IMPRESSION: 1. Chest pain, somewhat atypical symptomatology for cardiac etiology at this time. No changes on th e electrocardiogram. Negative troponin x3 and a 2D echo anterior interpreted by myself with normal e jection fraction, no wall motion abnormalities. 2. Abnormal electrocardiogram with inferior biphasic abnormalities. No change in electrocardiogram. Negative troponin x2. 3. Hypertension, reasonable control. 4. Dyslipidemia. 5. Status post total thyroidectomy. RECOMMENDATIONS: 1. At this time, we would maintain the patient on baseline atenolol and benazepril. 2. Patient will resume her baseline statin therapy. 3. The patient to have local wound care to her surgical site which may be related to the patient's c hest pain episodes and the patient was given a card in order to obtain followup appointment to [facility] outpatient stress testing, which has been communicated to the patient, the patient states understan ds and is agreeable. Thank you for allowing me to take part in the care of this patient. I will continue to follow closel y with you, with recommendations to be made as the patient continues on the hospital course. Dictated By: MOSES CERVANTES/NTS Conf#: [id number] DID#: [id number] CC: JESSIE JUNIOR MD; HAILEY CUELLAR MD;*EndCC*
== END 2018-10-18 14:10 | disposition home or self-care (01) | DRG 627 ==
LOC: REC 07:59 → MS1 15:01
PROVIDERS: ADMIT Internal Medicine; ATTEND Surgery
PROC: 0GTK0ZZ Resection of Thyroid Gland, Open Approach (ICD-10-PCS; principal; 2018-10-15 12:00)
DX: E04.1 Nontoxic single thyroid nodule (principal); R13.10 Dysphagia, unspecified; I10 Essential (primary) hypertension; E78.5 Hyperlipidemia, unspecified; E03.9 Hypothyroidism, unspecified; E66.9 Obesity, unspecified
CPT/HCPCS: 71045; 80048; 80053; 80061; 82310; 82550; 82553; 84436; 84479; 84484; 84703; 85025; 85610; 85730; 88307; 93005; 93306; C9113; J0690; J1100; J1170; J1200; J2250; J2270; J2370; J2405; J2765; J3010; J7030; J7120